=== PATIENT | female | born 1960 | race Caucasian/White ===

== ENCOUNTER → 2016-12-23 | Outpatient (CLI) | payer BC ==
--- NOTE | 2016-12-23 16:45 | MAMMOGRAPHY REPORT ---
BILATERAL DIGITAL SCREENING MAMMOGRAM TOMOSYNTHESIS WITH CAD: 12/23/2016 CLINICAL HISTORY: Routine screening. Patient has no complaints. TECHNIQUE: Breast tomosynthesis in addition to standard 2D mammography was performed. Current study was also evaluated with a Computer Aided Detection (CAD) system. COMPARISON: Comparison is made to exams dated: 12/22/2014 mammogram, 12/26/2013 mammogram, 12/26/2013 ultrasound, 12/21/2013 mammogram, 12/20/2012 mammogram, and 12/17/2011 mammogram - [facility]. BREAST COMPOSITION: The tissue of both breasts is heterogeneously dense, which may obscure small ma sses. FINDINGS: There is a 12 mm asymmetry seen within the right medial posterior breast on the cc tomosy nthesis images, which may represent normal overlapping fibroglandular tissue although spot compressi on tomosynthesis views and possible breast ultrasound are recommended to exclude the possibility of a mass. The remainder of both breasts are stable compared to prior exams, without suspicious masses, calcifi cations, or areas of architectural distortion noted. Asymmetry in the left lateral breast on the cc view is stable compared to prior exams including the 2010 exam. IMPRESSION: ACR BI-RADS CATEGORY 0: INCOMPLETE EVALUATION: NEED ADDITIONAL IMAGING EVALUATION Right medial breast asymmetry, for which additional imaging evaluation is recommended. The patient will be called to schedule an appointment. Approximately 10% of breast cancers are not detected with mammography. A negative mammographic repor t should not delay biopsy if a clinically suggestive mass is present. Sun Rubio M.D. /:12/23/2016 15:11:23 Evaluation Analyst: Esha Resendez, [facility] letter sent: Addl Imaging 0 BI-RADS Code: ACR BI-RADS Category 0: Incomplete Evaluation: Need Additional Imaging Evaluation
== END | disposition home or self-care (01) ==
LOC: C.MAMM 09:10
PROVIDERS: ATTEND Family Medicine
DX: Z12.31 Encounter for screening mammogram for malignant neoplasm of breast (principal); R92.8 Other abnormal and inconclusive findings on diagnostic imaging of breast

== ENCOUNTER → 2017-01-07 | Outpatient (CLI) | payer BC ==
--- NOTE | 2017-01-07 12:34 | MAMMOGRAPHY REPORT ---
UNILATERAL RIGHT DIGITAL DIAGNOSTIC MAMMOGRAM TOMOSYNTHESIS AND TARGETED RIGHT ULTRASOUND: 01/07/2017 CLINICAL HISTORY: Callback from screening mammogram for possible right breast mass. TECHNIQUE: Breast tomosynthesis in addition to standard 2D mammography was performed. Spot dana taqueria right CC 2-D and tomosynthesis images were obtained. COMPARISON: Comparison is made to exams dated: 12/23/2016 mammogram, 12/22/2014 mammogram, 12/26/2013 mammogram, 12/21/2013 mammogram, 12/20/2012 mammogram, and 12/17/2011 mammogram - [facility]. BREAST COMPOSITION: The tissue of the right breast is heterogeneously dense, which may obscure smal l masses. FINDINGS: The previously described 12 mm asymmetry seen within the right medial breast on the cc vie w only effaces on the additional spot compression views. The tissue in this region has the appearan ce of normal fibroglandular tissue on the tomosynthesis images, without a discrete mass or ux information architect ural distortion seen. Targeted ultrasound was performed of the right medial breast in the region of the mammographic asymm etry. Sonographically normal tissue is seen in this region, without evidence of a mass or other pham picious sonographic abnormality. IMPRESSION: ACR BI-RADS CATEGORY 2: BENIGN, TARGETED ULTRASOUND ACR BI-RADS CATEGORY 2: BENIGN The right medial breast asymmetry effaces on the additional views, without corresponding sonographic abnormality evident. The asymmetry is benign and compatible with normal fibroglandular tissue. Th ere is no mammographic or targeted sonographic evidence of malignancy. A 1 year screening mammogram is recommended. The patient has been verbally notified of the results. Approximately 10% of breast cancers are not detected with mammography. A negative mammographic repor t should not delay biopsy if a clinically suggestive mass is present. Sun Rubio M.D. ah/:01/07/2017 10:29:50 Parts Sales Representative: Luz DUMONT)(M), [facility] letter sent: Normal 1/2 BI-RADS Code: ACR BI-RADS Category 2: Benign Ultrasound BI-RADS: ACR BI-RADS Category 2: Benign
== END | disposition home or self-care (01) ==
LOC: C.MAMM 09:30
PROVIDERS: ATTEND Family Medicine
DX: N64.9 Disorder of breast, unspecified (principal)

== ENCOUNTER → 2017-12-24 | Outpatient (CLI) | payer OTHER ==
--- NOTE | 2017-12-24 15:08 | MAMMOGRAPHY REPORT ---
BILATERAL DIGITAL SCREENING MAMMOGRAM TOMOSYNTHESIS WITH CAD: 12/24/2017 CLINICAL HISTORY: Routine screening. Patient has no complaints. TECHNIQUE: Breast tomosynthesis in addition to standard 2D mammography was performed. Current study was also evaluated with a Computer Aided Detection (CAD) system. COMPARISON: Comparison is made to exams dated: 01/07/2017 ultrasound, 01/07/2017 mammogram, 12/23/2016 ma mmogram, 12/22/2014 mammogram, 12/26/2013 mammogram, and 12/26/2013 ultrasound - [facility]. BREAST COMPOSITION: The tissue of both breasts is heterogeneously dense, which may obscure small mas ses. FINDINGS: No suspicious masses, calcifications, or areas of architectural distortion are noted in ei ther breast. There has been no significant interval change compared to prior exams. IMPRESSION: ACR BI-RADS CATEGORY 1: NEGATIVE There is no mammographic evidence of malignancy. A 1 year screening mammogram is recommended. The pa tient will receive written notification of the results. Approximately 10% of breast cancers are not detected with mammography. A negative mammographic report should not delay biopsy if a clinically suggestive mass is present. Sun Rubio M.D. ah/:12/24/2017 12:10:19 Market Development Trainer: Genoveva BLACK(Hailey)(Anita), [facility] letter sent: Normal 1/2 BI-RADS Code: ACR BI-RADS Category 1: Negative
== END | disposition home or self-care (01) ==
LOC: C.MAMM 09:08
PROVIDERS: ATTEND Family Medicine
DX: Z12.31 Encounter for screening mammogram for malignant neoplasm of breast (principal)

== ENCOUNTER 2024-11-03 08:39 | Observation (INO) ==
--- NOTE | 2024-09-28 11:47 | PAT Medication Instructions ---
Medication Instructions Date of Service September 28, 2024 Home Medications calcium 600 mg (as carbonate)-vitamin D3 5 mcg (200 unit) capsule (Calcium 600 + D(3)) 1 cap PO QPM cetirizine 10 mg tablet (Zyrtec) 10 mg PO QPM PRN allergies magnesium chloride 71.5 mg (magnesium chloride) tablet,delayed release (Slow- Mag) 143 mg PO QPM diclofenac sodium 75 mg tablet,delayed release 75 mg PO BID levothyroxine 75 mcg tablet 75 mcg PO QAM Women's 50 Plus Multivitamin) 1 tab PO QPM ASK your surgeon for instructions diclofenac sodium 75 mg tablet,delayed release 75 mg PO BID Take morning of surgery With a small sip of water, OTHERWISE NOTHING TO EAT OR DRINK AFTER MIDNIGHT: levothyroxine 75 mcg tablet 75 mcg PO QAM Take evening before surgery calcium 600 mg (as carbonate)-vitamin D3 5 mcg (200 unit) capsule (Calcium 600 + D(3)) 1 cap PO QPM cetirizine 10 mg tablet (Zyrtec) 10 mg PO QPM PRN allergies magnesium chloride 71.5 mg (magnesium chloride) tablet,delayed release (Slow- Mag) 143 mg PO QPM Women's 50 Plus Multivitamin) 1 tab PO QPM Other Notes If you have any questions please call us at [phone] or [phone] or [phone] or [phone]
--- NOTE | 2024-10-04 09:06 | Anesthesiology Consultation ---
Date of Service October 04, 2024 Assessment & Plan (1) Encounter for pre-operative examination: - awaiting surgeon ordered medical clearance, Meredith Linares 10/18/24 and echocardiogram. Patient made aware echocardiogram would be needed given murmur and recommended neuraxial anesthesia. Optimization form to be faxed to PCP with PAT testing. Surgeon's office made aware. Chart Review Chart Review: Pending: Refer to Additional Notes / Consult section and Patient seen in Pre Admission Testing Teaching & Discussion Pre-Anesthesia Teaching/Discussion Notes: Instructed NPO after midnight before surgery, except medications with 15 cc of water. Medication instructions provided according to the PAT guidelines. History Surgery Operation Date: 11/03/24 07:00 Proposed Procedures p Right Total Hip Arthroplasty - Dakotah Sutton MD Height/Weight Height: 5 ft 8.5 in Weight: 73.8 kg Allergies Allergy/AdvReac Type Severity Reaction Status Date / Time Sulfa (Sulfonamide Allergy Mild Rash Verified 09/27/24 13:31 Antibiotics) Medications Home Medications Medication Instructions Recorded Confirmed Last Taken calcium 600 mg (as 1 cap PO QPM 02/25/20 09/27/24 Unknown carbonate)-vitamin D3 5 mcg (200 unit) capsule (Calcium 600 + D(3)) cetirizine 10 mg tablet (Zyrtec) 10 mg PO QPM PRN allergies 02/25/20 09/27/24 Unknown magnesium chloride 71.5 mg 143 mg PO QPM 02/25/20 09/27/24 Unknown (magnesium chloride) tablet,delayed release (Slow-Mag) diclofenac sodium 75 mg 75 mg PO BID 09/27/24 09/27/24 Unknown tablet,delayed release levothyroxine 75 mcg tablet 75 mcg PO QAM 09/27/24 09/27/24 Unknown dicbtfal-irz-qfigf ac 400 1 tab PO QPM 09/27/24 09/27/24 Unknown mcg-calcium carb 500 mg-vit K1 20 mcg tablet (Women's 50 Plus Multivitamin) Past Medical History Medical History (Updated 10/04/24 @ 09:22 by Beth Bryant PA-C) Cardiac murmur when younger, states was last detected in 40s Hx of colonic polyps Hx: UTI (urinary tract infection) previously had frequent UTI's - ~ 15 years ago Hypothyroidism Osteoarthritis Seasonal allergies Patient denies h/o stroke, seizures, heart attack, heart failure, DM, HTN, blood clots/DVTs or blood transfusions. Exercise / Class Metabolic Activity II 4-5 Yardwork/Stairs/Walk up hill (denies chest discomfort or shortness of breath with one flight of stairs) Past Surgical History Surgical History (Updated 10/04/24 @ 09:05 by Beth Bryant PA-C) Hx of colonoscopy with polypectomy Past Anesthesia History No Hx of Anesthesia Complications and No Family Hx of Anesthesia Complications History of PONV No Hx of PONV and No Hx of Motion Sickness Social History Smoking Status: Never smoker Do You Dip or Chew Tobacco: No Hx Alcohol Use: Yes alcohol intake frequency: a few times a week Hx Substance Use: No substance use type: does not use Review of Systems Patient denies chest pain, shortness of breath, dyspnea on exertion, snoring, witnessed apneas, reflux, fever, chills, cough, wheezing, or palpitations. Physical Exam Vital Signs Vitals BP 133/85 P 73 TEMP 98.0 SP02 97% on RA RESP 18 Physical Patient resting comfortably in chair in no acute distress, alert and oriented, responding appropriately throughout visit Full cervical extension range of motion without pain TMD 3.5 finger breadths Mallampati Score 2 Dentition: one chipped tooth; denies teeth, caps/crowns, implants or bridges Lungs: normal respiratory effort. Good air movement, clear throughout to auscultation, no adventitious breath sounds Cardiac: regular rate and rhythm, 2/6 systolic murmur, no gallops or rubs Carotid arteries: negative bruit bilat Lab Results Anesthesia Preop Results Results Anesthesia Widget: WBC 5.51 K/ul (4.8-10.8) 10/04/24 Hgb 13.1 g/dl (12.0-16.0) 10/04/24 Hct 39.4 % (37.0-47.0) 10/04/24 Plt 309 K/uL (130-400) 10/04/24 PT 10.3 Seconds (9.0-12.0) 10/04/24 PTT 26 Seconds (21-31) 10/04/24 INR 0.9 (0.9-1.1) 10/04/24 Urine Color Yellow 10/04/24 Urine Appearance Clear (Clear) 10/04/24 Urine pH 8.0 (4.5-7.5) H 10/04/24 Urine Specific Jonancy 1.008 (1.000-1.030) 10/04/24 Urine Protein Negative (Negative) 10/04/24 Urine Glucose (UA) Negative (Negative) 10/04/24 Urine Ketones Negative (Negative) 10/04/24 Urine Blood Negative (Negative) 10/04/24 Urine Nitrite Negative (Negative) 10/04/24 Urine Bilirubin Negative (Negative) 10/04/24 Urine Urobilinogen Negative (Negative) 10/04/24 Urine Leukocyte Esterase Trace (Negative) H 10/04/24 Urine WBC (Auto) 0-5 /hpf (0-5) 10/04/24 Urine RBC (Auto) 6-10 /hpf (0-2) H 10/04/24 Urine Hyaline Casts (Auto) 0-2 /lpf (0-2) 10/04/24 Urine Epithelial Cells (Auto) 0-2 /hpf (0-2) 10/04/24 Urine Bacteria (Auto) None Seen (None Seen) 10/04/24 Blood Type O Positive 10/04/24 Antibody Screen NEGATIVE 10/04/24 Testing Laboratory Results 09/29/24 SODIUM: 139 POTASSIUM: 4.4 CHLORIDE: 104 CO2: 28 BUN: 18 CREATININE: 0.6 GLUCOSE: 97 AST: 39 ALT: 43 Alk phos: 83 TSH: 2.3 free T4: 1.4 Electrocardiogram Date: 10/04/24 NSR, rate 65 bpm
--- NOTE | 2024-10-12 15:14 | History & Physical Report ---
Date of Service October 12, 2024 Assessment & Plan (1) Osteoarthritis of right hip: Plan: PRE-OP Diagnosis: Right hip osteoarthritis Planned Procedure: Right total hip arthroplasty Plan: Patient is scheduled to undergo this procedure at the [facility] with Dr. Sutton on October. Risks and complications of the procedure such as: Infection, bleeding, pain, scarring, nerve blood vessel damage, weakness, wound problems, stiffness, incomplete relief of symptoms, hardware failure, hardware loosening, wear, fracture, tendon or ligament injury, dislocation, leg length inequality, blood clots, Embolism, heart attack, stroke and were explained to the patient at her visit today. Informed consent to perform the procedure was obtained. Patient met with anesthesia on October 04 and while there she obtained a CBC with differential, complete metabolic panel, PT/INR, blood type and screen, urinalysis, urine culture and sensitivity, EKG, and a nasal culture for MRSA. Patient will also need preoperative medical clearance from their primary care provider. That appointment is scheduled for October 18 at 2:10 PM. Patient states that she plans on doing in-home physical therapy for the first 1 to 2 weeks postoperat ively with [facility]. Patient states that she will most likely elect to do outpatient physical therapy at our PT clinic. Patient will need a walker, raised toilet seat, shower chair and a hip kit. During today's visit we reviewed the total hip packet as well as precautions. We discussed discharge planning from the hospital. I provided paperwork to obtain a handicap placard for their vehicle. We discussed lectures offered by [facility] in regards to joint replacement surgery via Zoom. I advised the patient that upon discharge from hospital we will prescribe a narcotic pain medication and anti-inflammatory. Patient will also be on an 81 mg aspirin twice daily for blood clot prevention. Patient will be scheduled for 2-week postoperative follow-up visit with myself on November 15, 2024. This chart was completed utilizing [employer] voice recognition software. Grammatical errors, random word insertions, pronoun errors, and in complete sentences are an occasional consequence of the system. Any questions or concerns about the content, text, or information contained within the body of this dictation should be addressed directly to the physician for clarification. History of Present Illness Chief Complaint: Chief Complaint: Right hip pain Primary Care Provider: Iveth Nixon MD History of Present Illness (including history relevant to procedure): 2 weeks this 63-year-old female presents the clinic today for her preoperative history and physical. Patient complains of 2-year history of significant right hip pain that seems to be worse when she is not moving. She states that she has used nonsteroidal agents with some mild relief of her pain. She states his starting to affect the mobility of her hip joint. Patient is electing to proceed with surgical invention Review Of Systems: A 12 point review of systems is performed and is unremarkable except for those things stated in the HPI and past medical history. Past Medical History: Problems: Arthritis of right hip Subclinical hypothyroidism IT band syndrome Seborrheic keratoses Allergic rhinitis Procedure History Procedure Procedure Date Comments Diagnostic mammogram 07/09/2022 - No evidence of architectural distortion within the right lateral breast on the additional mammogrpahic images. Findings are benign and consistent with normal fibrogladular tissue. No mammographic evidence of malignancy in the right breast. Mammogram 06/27/2022 - Possible right breast architectural distortion, for which additional imaging evaluation is recommended. The patient will be called to schedule an appointment. Mammogram 06/26/2021 - No mammographic evidence of malignancy. 1 year screening is recommended. Mammogram 06/25/2020 - No mammographic evidence of malignancy. 1 year screening is recommended. Mammogram 02/15/2019 - No mammographic evidence of malignancy. 1 year screening is recommended. Colonoscopy 02/09/2018 - next scope in 10 yrs - The entire examined colon is normal.No specimens collected. Mammogram 12/24/2017 - There is no mammographic evidence of malignancy. 1 year screening is recommended. Mammogram 01/07/2017 - The right medial breast asymmetry effaces on the additional views, without corresponding soogrpahic abnormality evident. The asymmetry is benign and compatible wit normal fibroglandular tissue. there is no mammographic evidence of malignancy. 1 year screening mamogram is recommended. [facility] C[facility] 0: INCOMPLETE EVALUATION: NEED ADDITIONAL IMAGING EVALUATION1. Right medial breast asymmetry, for which additional imaging evaluation is recommended Date of last PAP test 12/10/2016 - Negative for intraepithelial lesion or malignancy. Mammogram 12/22/2014 - No evidence of malignancy.A one year mammogram is recommended. DEXA - Dual energy X-ray photon absorptiometry 12/17/2011 - T SCORESLIGHTLY HIGH, ANSELMOD REPEAT 2-14 Colonoscopy 2009 - polyp removed, but lost, so told another one in 5 yrs. PAP test date 1960 Allergies and Sensitivities: sulfa drugs Current Home Meds: (Last Updated 10/12 11:05) calcium-vitamin D (Citracal + D) PO Daily cetirizine (ZyrTEC 10 mg oral tablet) 10 mg PO Daily PRN: as needed for allergy symptoms diclofenac (diclofenac sodium 75 mg oral delayed release tablet) 75 mg PO bid PRN: as needed for pain levothyroxine (levothyroxine 75 mcg (0.075 mg) oral tablet) 1 tab PO Daily magnesium chloride multivitamin (One-A-Day 50+) 1 tab PO Daily Initial Wt: 10/12 73.7 kg 162 lb Allergies Allergy/AdvReac Type Severity Reaction Status Date / Time Sulfa (Sulfonamide Allergy Mild Rash Verified 09/27/24 13:31 Antibiotics) Home Medications Medication Instructions Recorded Confirmed Type calcium 600 mg (as 1 cap PO QPM 02/25/20 09/27/24 History carbonate)-vitamin D3 5 mcg (200 unit) capsule (Calcium 600 + D(3)) cetirizine 10 mg tablet (Zyrtec) 10 mg PO QPM PRN allergies 02/25/20 09/27/24 History magnesium chloride 71.5 mg 143 mg PO QPM 02/25/20 09/27/24 History (magnesium chloride) tablet,delayed release (Slow-Mag) diclofenac sodium 75 mg 75 mg PO BID 09/27/24 09/27/24 History tablet,delayed release levothyroxine 75 mcg tablet 75 mcg PO QAM 09/27/24 09/27/24 History xrkziuzc-tnl-agaff ac 400 1 tab PO QPM 09/27/24 09/27/24 History mcg-calcium carb 500 mg-vit K1 20 mcg tablet (Women's 50 Plus Multivitamin) Past Med/Surg History Problem List (Updated 10/12/24 @ 15:13 by Trell Knight PA-C) Osteoarthritis of right hip Encounter for pre-operative examination Medical History (Updated 10/12/24 @ 15:13 by Trell Knight PA-C) Osteoarthritis Hx: UTI (urinary tract infection) previously had frequent UTI's - ~ 15 years ago Cardiac murmur when younger, states was last detected in 40s Seasonal allergies Hx of colonic polyps Hypothyroidism Surgical History (Updated 10/04/24 @ 09:05 by Beth Bryant PA-C) Hx of colonoscopy with polypectomy Social History Smoking Status: Never smoker Second Hand Exposure: No; Do You Dip or Chew Tobacco: No; Hx Alcohol Use: Yes Hx Substance Use: No Preferred Language: Icelandic Communication Ability: Effective Revenue Tax Specialist Required: No Beliefs That Will Affect Care: None Current Living Situation: Alone Feels Safe at Home: Yes Assistive Devices: Glasses and Other Physical Exam Physical Exam: Physical Exam: (relevant to the procedure, including heart and lung evaluation) General: Alert and oriented x 3 with proper grooming and hygiene Eyes: Pupils are equal and reactive to light with accommodation. Extraocular movements are intact Throat: Posterior oropharynx clear with absence of edema, erythema or exudate. Dentition is appropriate Cardiac: Regular rate and rhythm with grade 2/6 systolic murmur heard best over the right upper sternal border. No gallops appreciated Lungs: Clear to auscultation throughout with no wheezing, rales or rhonchi Abdomen: Nonobese, nondistended, nontender with NABS Extremities: Right hip: Flexion is limited to 90 degrees, internal rotation to 5 degrees and external rotation to 40 degrees. Stinchfield logroll test were both positive. Impingement test was positive. Patient experienced tenderness to palpation in her groin area. She was neurovascularly intact. Neuro: Cranial nerves II through XII are intact no motor or sensory deficit Skin: Normal in appearance with no open skin areas or discharge Results & Data Diagnostic Findings Studies of Lab Results (relevant to the procedure): AP Pelvis,AP andfrog-leg lateralviews of theright [id number] [facility] show central pattern osteoarthritis. Large peripheral osteophytes
[~2024-11-03 08:39] MED LIST: BUPIVACAINE 0.5 % 5 MG/1 ML PF 10ML VIAL ONE
[2024-11-03] MEDS: Scopolamine 1 MG TDSY TD SCH (09:43)
[2024-11-03] MEDS: LR 500ML BOLUS, THEN 15ML/HR IV SCH (10:20)
[2024-11-03] MEDS: LR 60ML/HR IV SCH (10:20)
[2024-11-03] MEDS: traMADol HCL 50 MG TABLET PO SCH (10:21)
[2024-11-03] MEDS: ACETAMINOPHEN 500 MG TAB PO SCH ×2 (10:21→18:15)
[2024-11-03] MEDS: dexAMETHasone**PF** 10 MG/ML VIAL IV SCH (10:21)
[2024-11-03] MEDS ORDERED: fentaNYL citrate PF 100 MCG/2 ML VIAL ONE (10:22)
[2024-11-03] MEDS: FAMOTIDINE 20 MG TAB PO SCH (10:22)
[2024-11-03] MEDS ORDERED: MIDAZOLAM HCL 1 MG/ML 2ML VIAL ONE (10:22)
--- NOTE | 2024-11-03 10:38 | History & Physical Bridge Note ---
Date of Service November 03, 2024 History & Physical Bridge Note I have examined the patient, reviewed the History & Physical and in the interval since the performance of the History & Physical I have noted the following changes of clinical significance: no changes noted
[2024-11-03] MEDS ORDERED: HYDROmorphone INJ 2 MG/ML SYR/VIAL IV PRN (10:45)
[2024-11-03] MEDS ORDERED: ONDANSETRON INJ 2 MG/ML 2 ML VIAL IV PRN ×2 (10:45→12:58)
[2024-11-03] MEDS ORDERED: fentaNYL citrate PF 100 MCG/2 ML VIAL IV PRN (10:45)
[2024-11-03] MEDS ORDERED: ePHEDrine sulfate 50 MG/ML AMP IV PRN (10:45)
[2024-11-03] MEDS ORDERED: ATROPINE SULFATE 0.1 MG/ML 10ML SYR IV PRN (10:45)
[2024-11-03] MEDS ORDERED: PROMETHAZINE HCL 6.25 MG in SODIUM CHLORIDE 0.9% 50 ML IV PRN (10:45)
[2024-11-03] MEDS: TRANEXAMIC ACID 1,000 MG **IV Pre-op IV SCH (10:57)
[2024-11-03] MEDS: ceFAZolin 2000MG 2,000 MG/15 ML SYR IV SCH ×2 (11:09→18:35)
[2024-11-03] MEDS ORDERED: PROPOFOL IV EMULSION 10 MG/ML 20 ML VIAL IV ONE (11:39)
[2024-11-03] MEDS ORDERED: ePHEDrine sulfate 50 MG/5 ML SYR ONE ×2 (11:39)
[2024-11-03] MEDS ORDERED: ONDANSETRON INJ 2 MG/ML 2 ML VIAL ONE (11:40)
[2024-11-03] MEDS: ROPIVACAINE 0.5% HCL/PF 246 MG, Ketorolac (*for OR use only*) 30 MG, EPINEPHrine 30MG/3... INFIL SCH (11:48)
[2024-11-03] MEDS: TRANEXAMIC ACID 1,000 MG **IV Intra-op IV SCH (12:15)
[2024-11-03] MEDS: ORTHO JOINT ANESTHETIC ONE (12:19)
--- NOTE | 2024-11-03 12:51 | Operative Report ---
Post Operative Report Pre & Post Diagnosis Operation Date: 11/03/24 10:40 Pre-Op Diagnosis: Right Hip Osteoarthritis Post-Op Diagnosis: Right Hip Osteoarthritis I identified the patient and participated in the time-out.: Yes Procedure Operation Date: 11/03/24 10:40 Actual Procedures p Right Total Hip Arthroplasty, Uncemented(Right) - Dakotah Sutton MD Surgeon Dakotah Sutton MD Morning Nanny TRAVIS Knight PA-C. No resident or fellow was available to assist. Estimated Blood Loss 100 Findings Consistent with Post-Op Diagnosis Specimens Right femoral head Anesthesia Type Spinal MAC Complications none Disposition Disposition: Recovery Room Indications 63-year-old female with right hip arthritis refractory to conservative management. X-rays demonstrate joint space narrowing, subchondral sclerosis, and marginal osteophyte formation. I had a long discussion with her about the risks and benefits of surgery, alternatives to surgery, and expected outcomes. After reviewing all these she elected to proceed with surgery. All questions were answered. Informed consent was signed. Description of Procedure Patient was identified in the preoperative holding area where the surgical site, right hip, was marked. A spinal anesthetic was placed, then the patient was brought back to the main operating room, placed in the operating table and moved into the lateral decubitus position. Axillary roll was placed. All bony prominences were padded. Perioperative antibiotics and tranexamic acid 1 gram IV were administered. The operative extremity was prepped and draped in the nor mal sterile fashion. Prior to incision a multidisciplinary timeout was called. All in the room were in agreement. We began by making an incision for a posterior approach to the hip. We dissected down through subcutaneous tissues to the level of the fascia. The fascia was incised in line with the incision. Charnley bow was placed. Fatty tissue was reflected posteriorly off the back of the greater trochanter to expose the piriformis and short external rotators of the hip. Quadratus femoris was taken off the femur subperiosteally. The piriformis and short external rotators were dissected off the posterior aspect of the hip. A box cut was made in the capsule. Inferior hip capsule was released off the femur. The femoral head was dislocated. The femoral neck cut was made at our preoperative template. The acetabulum was then exposed. The labrum was sharply excised. Contents of the cotyloid fossa were removed with electrocautery. We then began reaming at a size 8 mm less than our preoperative template. We reamed up by 1 [address] the way up to a size 54 mm cup. This gave us good bleeding cancellus bone circumferentially. The acetabulum was then irrigated out and dried. The real Bois D Arc Gription cup was then impacted down into position with 45 degrees of lateral opening and 25 degrees of anteversion. Two cancellous bone screws were placed up into the tony um. Excellent fixation was obtained. A trial liner for a 36 mm femoral head was then placed. Next we turned our attention to the femur. The lateral neck was removed with a box osteotome. Intramedullary guide was used to establish the intramedullary canal. We then broached all the way up to a size 2. We began trialing with a Standard offset neck and a +5 head. Hip was reduced. Leg lengths were symmetric. The hip was stable in extension and external rotation, and stable in the sleeper position. At 90 degrees of hip flexion the hip could be internally rotated 65 degrees before levering out of the cup. I was very happy with the stability exam. Therefore the hip was dislocated and the femoral trial was removed. The acetabulum was re-exposed, and the trial liner was removed. Clark hole eliminator screw was placed. An Altrx polyethylene liner for a 36 mm femoral head was then impacted into the shell. The locking mechanism was checked to ensure that it had engaged which it had. The femur was re-exposed. The femoral canal was irrigated and dried. The real Actis femoral stem was opened up. This was impacted down into position. The femoral head was opened up and gently impacted down onto the trunnion. The hip was atraumatically reduced. Another 1 gram of IV tranexamic acid was started prior to closure. The wound was irrigated out with sterile Betadine solution. The periarticular injection cocktail was then placed. The short external rotators, piriformis, and posterior capsule were repaired through drill holes in the greater trochanter using #2 Vicryl. The fascia was run with a looped #1 PDS. The subcutaneous layer was closed with #1 PDS. The dermal layer was closed with 2-0 Vicryl. Zip line was used for the skin followed by a Silverlon dressing. A compressive dressing was then placed. The patient was then rolled supine. Leg lengths were rechecked and were symmetric. An abduction pillow was placed. Sedation was lifted and the patient was transferred to the recovery room in stable condition. Summary of implants: Depuy Bois D Arc Gription Acetabular Shell Sector Cup, 54 mm outer diameter Bois D Arc Cancellous bone screw, 6.5 x 40 mm Clark hole eliminator Bois D Arc Altrx Polyethylene Acetabular Liner, Neutral, with a 36 mm inner diameter DePuy Actis collared cementless Femoral stem, 12/14 taper, size 2 Standard offset 36 mm ceramic femoral head with +5 offset Postoperative course: Patient will be admitted overnight from the recovery room. Patient will be weightbearing as tolerated with posterior hip precautions. Aspirin for DVT prophylaxis I attest to the content of the Intraoperative Record and any orders documented therein. Any exceptions are noted below.
[2024-11-03] MEDS ORDERED: METOCLOPRAMIDE HCL INJ 5 MG/ML 2 ML VIAL IV PRN (12:58)
[2024-11-03] MEDS ORDERED: NALOXONE HCL 0.4 MG/1 ML VIAL/CARP IV PRN (12:58)
[2024-11-03] MEDS ORDERED: diphenhydrAMINE 50 MG/ML VIAL IV PRN (12:58)
[2024-11-03] MEDS ORDERED: bisacodyL 10 MG SUPP PR PRN (12:58)
[2024-11-03] MEDS ORDERED: MAGNESIUM HYDROXIDE SUSP 30 ML UDC PO PRN (12:58)
[2024-11-03] MEDS ORDERED: ALUMINUM/MAGNESIUM SUSP 30 ML UDC PO PRN (12:58)
[2024-11-03] MEDS ORDERED: oxyCODONE HCL IR 5 MG TAB (IMMEDIATE RELEASE) PO PRN (12:58)
--- NOTE | 2024-11-03 12:58 | Operative Report ---
Post Operative Report Pre & Post Diagnosis Operation Date: 11/03/24 10:40 Pre-Op Diagnosis: Right Hip Osteoarthritis Post-Op Diagnosis: Right Hip Osteoarthritis I identified the patient and participated in the time-out.: Yes Procedure Operation Date: 11/03/24 10:40 Actual Procedures p Right Total Hip Arthroplasty, Uncemented(Right) - Dakotah Sutton MD Surgeon Dakotah Sutton MD Hand Touch Up Painter TRAVIS Knight PA-C. No resident or fellow was available to assist. Estimated Blood Loss 100 Findings Consistent with Post-Op Diagnosis Specimens femoral head Description of Procedure I was present during the entire case assisting with positioning, prepping, draping, wound retraction, wound closure and dressing application. No fellow present. Please see Dr. Sutton procedure note for specifics of the case. I attest to the content of the Intraoperative Record and any orders documented therein. Any exceptions are noted below.
[2024-11-03] MEDS ORDERED: CETIRIZINE HCL 10 MG TABLET PO PRN (13:01)
--- NOTE | 2024-11-03 13:48 | XRay Report ---
XR pelvis 1-2V routine HISTORY: 63 years-old Female In PACU - Post Surgical right hip arthroplasty COMPARISON: Pelvis radiograph 10/12/2024 TECHNIQUE: AP view the pelvis FINDINGS: Satisfactory alignment of the right hip arthroplasty. Expected postoperative soft tissue swelling wit h deep tissue air. Mild to moderate left hip osteoarthritis. IMPRESSION: Satisfactory alignment of the right hip arthroplasty. ACT 112: Negative or not required by law. The above report was generated using voice recognition software. It may contain grammatical, syntax o r spelling errors. Electronically signed by: Yazan Ayoub M.D. 11/03/2024 1:47 PM
--- NOTE | 2024-11-03 15:15 | Anesthesiology Progress Note ---
Date of Service November 03, 2024 Anesthesia Post Procedure Vital Signs Vital Signs: Temp Pulse Resp BP BP Pulse Ox O2 Del Method 11/03/24 15:10 67 15 107/61 951 H Room Air 11/03/24 14:55 64 19 103/57 L 96 Room Air 11/03/24 14:40 62 17 104/59 L 96 Room Air 11/03/24 14:25 66 19 104/61 98 Room Air 11/03/24 14:10 64 15 105/62 97 Room Air 11/03/24 14:00 36.3 C L 71 23 103/62 100 Room Air 11/03/24 13:50 69 26 H 100/58 L 99 Room Air 11/03/24 13:40 70 20 105/62 96 Room Air 11/03/24 13:30 64 15 104/61 98 Room Air 11/03/24 13:20 70 17 93/73 L 98 Room Air 11/03/24 13:10 76 26 H 86/58 L 98 Room Air 11/03/24 13:00 73 12 101/56 L 99 Room Air 11/03/24 12:54 36.2 C L 79 21 108/63 98 Room Air 11/03/24 10:25 57 L 116/81 99 Room Air 11/03/24 09:18 36.8 C 66 18 167/92 H 100 Room Air Transfer of Care Handoff Completed per policy Notes Mental Status: alert / awake / arousable and participated in evaluation Nausea / Vomiting: adequately controlled Pain: adequately controlled Airway Patency, RR, SpO2: stable & adequate BP & HR: stable & adequate Hydration State: stable & adequate Neuraxial Anesthesia: was administered and sensory block is resolving Anesthetic Complications: no major complications apparent and Pt Satisfied with anesthetic care
[2024-11-03] MEDS: KETOROLAC TROMETHAMINE 15 MG/ML VIAL IV SCH (18:09)
[2024-11-03] MEDS: Scopolamine CHECK PATCH PLACEMENT SCH (18:15)
[2024-11-03] MEDS ORDERED: Nursing to Pharmacy Communication SCH (18:45)
--- NOTE | 2024-11-03 19:48 | Hospitalist Consultation ---
Date of Consultation November 03, 2024 Assessment & Plan (1) Osteoarthritis of right hip: (2) Hypothyroidism: (3) Cardiac murmur: Plan S/P Right Total Hip Arthroplasty -Underwent surgery earlier today (11/03) -Management per orthopedic surgery -Encouraged patient to continue bowel regimen with pain medication to prevent constipation Hypotension -BP slightly soft with systolic BP ranging from 80s-90s -Patient asymptomatic at present, had vasovagal episode reportedly while obtaining IV access earlier -EBL documented at 100cc -Encouraged adequate PO intake. Will order 1 bag of IVF as BP has not improved significantly overnight -CBC, BMP ordered for a.m. Hypothyroidism -Continue levothyroxine History of Heart Murmur -Underwent echo (10/05/2024) that showed a sclerotic tricuspid aortic valve, but no aortic stenosis or valvular disease -LVEF was estimated at 65% History of Present Illness Attending Physician: Dakotah Sutton MD History of Present Illness Henrietta Weir is a 63 year-old female with medical history significant for arthritis, hypothyroidism. Patient is s/p right total hip arthroplasty, was completed earlier today (11/03/24). Orthopedic surgery consulted hospitalist service for medical management. Patient states she is feeling well at present. Reports that there was some difficulty when nursing needed to place IV access which caused her to vasovagal- states that when the IV antibiotic was run through the IV if felt "weird" and she again felt flushed and sweaty. Reports prior episodes similar to this earlier in her life with blood draws, but states in the years since then she has tolerated blood draws without issue. Endorses some discomfort with the location of her IV (at right antecubital) but otherwise is asymptomatic. Denies dizziness/lightheadedness/chest pain/shortness of breath. Allergies Allergy/AdvReac Type Severity Reaction Status Date / Time Sulfa (Sulfonamide Allergy Mild Rash Verified 11/03/24 09:17 Antibiotics) Home Medications Medication Instructions Recorded Confirmed Type calcium 600 mg (as 1 cap PO QPM 02/25/20 11/03/24 History carbonate)-vitamin D3 5 mcg (200 unit) capsule (Calcium 600 + D(3)) cetirizine 10 mg tablet (Zyrtec) 10 mg PO QPM PRN allergies 02/25/20 11/03/24 History magnesium chloride 71.5 mg 143 mg PO QPM 02/25/20 11/03/24 History (magnesium chloride) tablet,delayed release (Slow-Mag) diclofenac sodium 75 mg 75 mg PO BID 09/27/24 11/03/24 History tablet,delayed release levothyroxine 75 mcg tablet 75 mcg PO QAM 09/27/24 11/03/24 History lvqskbml-sjs-qrdup ac 400 1 tab PO QPM 09/27/24 11/03/24 History mcg-calcium carb 500 mg-vit K1 20 mcg tablet (Women's 50 Plus Multivitamin) Patient History Medical History Osteoarthritis Hx: UTI (urinary tract infection) previously had frequent UTI's - ~ 15 years ago Cardiac murmur when younger, states was last detected in 40s Seasonal allergies Hx of colonic polyps Hypothyroidism Surgical History Hx of colonoscopy with polypectomy Social History Smoking Status: Never smoker Second Hand Exposure: No; Do You Dip or Chew Tobacco: No; Tobacco Cessation Education Requested by Patient: No Hx Alcohol Use: Yes Hx Substance Use: No Preferred Language: [place]i Communication Ability: Effective Fish Roe Processor Required: No Beliefs That Will Affect Care: None Current Living Situation: Alone Other Information That Helps Us Care for You: No Feels Safe at Home: Yes Safety Concerns: Feels Safe At This Time Assistive Devices: Glasses and Other Assistive Devices Comment: trays over teeth to sleep with for straightening Review of Systems Review of Systems: As per above Physical Exam Constitutional: WD/WN, vitals as above Eyes: + anicteric sclerae; no conjunctival abn ormality ENMT: Ears: no external ear abnormality Nose: no external nose abnormality Moist mucous membranes Respiratory: normal respiratory effort, lungs clear to auscultation Cardiovascular: Rate/Rhythm: regular rate and regular rhythm Extremities: no edema Gastrointestinal (Abdomen): Inspection/Auscultation: abdomen normal to inspection; abdomen not distended Percussion/Palpation: abdomen soft; abdomen nontender Musculoskeletal: Right hip bandaged Skin: no rashes, warm and dry Psychiatric: A+Ox3, euthymic affect Results & Data Results & Data Vital Signs (Past 12 Hours) Vital Signs Temp Pulse Pulse Resp BP BP Pulse Ox 11/03/24 19:19 67 18 95/60 L 11/03/24 18:53 61 16 88/52 L 92 11/03/24 18:52 83/47 L 11/03/24 18:46 54 L 17 80/40 L 95 11/03/24 18:18 36.5 C 75 16 99/60 L 94 11/03/24 17:22 36.5 C 79 16 99/61 L 95 11/03/24 16:59 36.3 C L 79 16 109/68 95 11/03/24 16:16 36.8 C 74 18 105/64 95 11/03/24 15:55 75 15 99/65 L 94 11/03/24 15:40 68 13 99/61 L 93 11/03/24 15:25 69 20 104/61 94 11/03/24 15:10 67 15 107/61 95 11/03/24 14:55 64 19 103/57 L 96 11/03/24 14:40 62 17 104/59 L 96 11/03/24 14:25 66 19 104/61 98 11/03/24 14:10 64 15 105/62 97 11/03/24 14:00 36.3 C L 71 23 103/62 100 11/03/24 13:50 69 26 H 100/58 L 99 11/03/24 13:40 70 20 105/62 96 11/03/24 13:30 64 15 104/61 98 11/03/24 13:20 70 17 93/73 L 98 11/03/24 13:10 76 26 H 86/58 L 98 11/03/24 13:00 73 12 101/56 L 99 11/03/24 12:54 36.2 C L 79 21 108/63 98 11/03/24 10:25 57 L 116/81 99 11/03/24 09:18 36.8 C 66 18 167/92 H 100 O2 Del Method 11/03/24 19:19 11/03/24 18:53 Room Air 11/03/24 18:52 11/03/24 18:46 Room Air 11/03/24 18:18 Room Air 11/03/24 17:22 Room Air 11/03/24 16:59 Room Air 11/03/24 16:16 Room Air 11/03/24 15:55 Room Air 11/03/24 15:40 Room Air 11/03/24 15:25 Room Air 11/03/24 15:10 Room Air 11/03/24 14:55 Room Air 11/03/24 14:40 Room Air 11/03/24 14:25 Room Air 11/03/24 14:10 Room Air 11/03/24 14:00 Room Air 11/03/24 13:50 Room Air 11/03/24 13:40 Room Air 11/03/24 13:30 Room Air 11/03/24 13:20 Room Air 11/03/24 13:10 Room Air 11/03/24 13:00 Room Air 11/03/24 12:54 Room Air 11/03/24 10:25 Room Air 11/03/24 09:18 Room Air Resident Activity Tracking Resident Involvement: Resident Care Provided Care Provided: Adult Hospital Medicine
[2024-11-03] MEDS: DOCUSATE SODIUM 100 MG CAP PO SCH (21:32)
[2024-11-03] MEDS: CALCIUM 600MG + VIT D 400 IU TAB PO SCH (21:32)
[2024-11-03] MEDS: SENNA 8.6 MG TAB PO SCH (21:32)
[2024-11-03] MEDS: DICLOFENAC SODIUM 75 MG TABCR PO SCH (21:33)
[2024-11-03] MEDS: MAGNESIUM CHLORIDE W/CALCIUM 64MG DELAYED REL TAB PO SCH (21:33)
[2024-11-03 23:56] VITALS: RESP 16
[2024-11-04] MEDS: KETOROLAC TROMETHAMINE 15 MG/ML VIAL IV SCH (00:56)
[2024-11-04 04:34] VITALS: TEMP 97.9
[2024-11-04] MEDS: ACETAMINOPHEN 500 MG TAB PO SCH (06:10)
[2024-11-04] MEDS: SODIUM CHLORIDE 0.9% 1,000 ML IV SCH (06:10)
[2024-11-04] MEDS: LEVOTHYROXINE SODIUM 75 MCG TABLET PO SCH (06:10)
[2024-11-04 07:19] LABS: Basophils # (auto) 0.02 K/uL (0.00-0.20); Basophils % (auto) 0.2 %; Eosinophils # (auto) 0.01 K/uL (0.00-0.50); Eosinophils % (auto) 0.1 %; Hematocrit (blood only) 31.6 % (37.0-47.0); Hemoglobin 10.6 g/dl (12.0-16.0); Immature Granulocytes # (auto) 0.04 K/uL (0.01-0.20); Immature Granulocytes % (auto) 0.4 %; Lymphocytes # (auto) 1.32 K/uL (1.20-3.40); Lymphocytes % (auto) 12.3 %; Mean Corpuscular Hemoglobin 31.3 pg (25.0-34.0); Mean Corpuscular Hgb Conc 33.5 g/dL (32.0-36.0); Mean Corpuscular Volume 93.2 fL (80.0-100.0); Monocytes % (auto) 11.2 %; Neutrophils # (auto) 8.15 K/uL (1.40-6.50); Neutrophils % (auto) 75.8 %; Platelet Count 250 K/uL (130-400); RDW Coefficient of Variation 12.5 % (11.5-14.5); RDW Standard Deviation 42.8 fL (36.4-46.3); Red Blood Count 3.39 M/uL (4.20-5.40); White Blood Count 10.74 K/ul (4.8-10.8)
[2024-11-04 07:39] LABS: BUN Creatinine Ratio 20.9 (10-20); Calcium 9.5 mg/dl (8.6-10.3); Creatinine Clr Calc Pharmacy 86.7 ml/min; Potassium 4.4 mmol/L (3.5-5.1)
[2024-11-04] MEDS: ASPIRIN 81 MG ECTAB PO SCH (08:51)
[2024-11-04] MEDS: dexAMETHasone 4 MG TAB PO SCH (08:52)
[2024-11-04] MEDS: MULTIVITAMIN TAB PO SCH (08:52)
--- NOTE | 2024-11-04 09:32 | Orthopedic Progress Note ---
Date of Service November 04, 2024 Assessment & Plan (1) S/P total hip arthroplasty: Plan: Total hip precautions reviewed Weightbearing as tolerated with walker assistance DVT prophylaxis with aspirin and RENITA stockings Pain controlled p.o. medication Abduction pillow use x 6 weeks Ice with easy wrap Keep Silverlon dressing in place Plan is to discharge home today with in-home physical therapy for the first 2 weeks Follow-up with [facility] orthopedics as previously scheduled Contact our clinic with questions at [phone] Admission and Anticipated Discharge Date Admission Date: November 03, 2024 Subjective This 63-year-old female is day 1 status post right total hip arthroplasty. Patient did have an episode of fainting in the preoperative area yesterday and was slightly hypotensive after surgery. She was evaluated by the hospitalist service. Her pressures have since normalized. Patient states her pain is well-controlled with p.o. pain medication. She states she did have some nausea earlier this morning. Currently she denies chest pain, shortness of breath, fever, chills, sweats, vomiting, diarrhea or difficulty voiding. She also denies any numbness or tingling in her right lower extremity. Review of Systems Review of Systems: All systems reviewed & are unremarkable except as noted in Subjective Physical Exam Physical Exam: Right hip: Outer dressing was removed. Silverlon is clean dry and intact left in place. Patient is able to perform an active straight leg raise test and actively dorsi and plantarflex her foot. Her quad strength is 3+ out of 5. She tolerates light passive hip flexion near 80 degrees but does feel some slight tension with light passive internal and external hip rotation. Logroll test causes no pain. Patient is neurovascularly intact right lower extremity. Results & Data Vital Signs (Past 12 Hours) Vital Signs Temp Pulse Resp BP BP Pulse Ox O2 Del Method 11/04/24 08:18 36.6 C 62 16 108/68 95 Room Air 11/04/24 04:31 36.6 C 62 16 99/64 L 95 Room Air 11/03/24 23:54 36.4 C L 62 16 95/60 L 93 Room Air Diagnostic Findings Laboratory Results WBC 10.74 K/ul (4.8-10.8) 11/04/24 06:51 RBC 3.39 M/uL (4.20-5.40) L 11/04/24 06:51 Hgb 10.6 g/dl (12.0-16.0) L 11/04/24 06:51 Hct 31.6 % (37.0-47.0) L 11/04/24 06:51 MCV 93.2 fL (80.0-100.0) 11/04/24 06:51 MCH 31.3 pg (25.0-34.0) 11/04/24 06:51 MCHC 33.5 g/dL (32.0-36.0) 11/04/24 06:51 RDW Std Deviation 42.8 fL (36.4-46.3) 11/04/24 06:51 RDW Coeff of Du 12.5 % (11.5-14.5) 11/04/24 06:51 Plt Count 250 K/uL (130-400) 11/04/24 06:51 MPV 10.0 fL (9.4-12.4) 11/04/24 06:51 Immature Gran % (Auto) 0.4 % 11/04/24 06:51 Neut % (Auto) 75.8 % 11/04/24 06:51 Lymph % (Auto) 12.3 % 11/04/24 06:51 [place] % (Auto) 11.2 % 11/04/24 06:51 Eos % (Auto) 0.1 % 11/04/24 06:51 Baso % (Auto) 0.2 % 11/04/24 06:51 Neut # (Auto) 8.15 K/uL (1.40-6.50) H 11/04/24 06:51 Lymph # (Auto) 1.32 K/uL (1.20-3.40) 11/04/24 06:51 [place] # (Auto) 1.20 K/uL (0.11-0.59) H 11/04/24 06:51 Eos # (Auto) 0.01 K/uL (0.00-0.50) 11/04/24 06:51 Baso # (Auto) 0.02 K/uL (0.00-0.20) 11/04/24 06:51 Immature Gran # (Auto) 0.04 K/uL (0.01-0.20) 11/04/24 06:51 Sodium 139 mmol/L (136-145) 11/04/24 06:51 Potassium 4.4 mmol/L (3.5-5.1) 11/04/24 06:51 Chloride 105 mmol/L (98-107) 11/04/24 06:51 Carbon Dioxide 29 mmol/L (21-32) 11/04/24 06:51 Anion Gap 5 (3-11) 11/04/24 06:51 BUN 14 mg/dl (6-23) 11/04/24 06:51 Creatinine 0.67 mg/dl (0.6-1.2) 11/04/24 06:51 Est Cr Clr Drug Dosing 86.7 ml/min 11/04/24 06:51 eGFR 98.15 11/04/24 06:51 BUN/Creatinine Ratio 20.9 (10-20) H 11/04/24 06:51 Glucose 105 mg/dl (70-99(Fasting)) H 11/04/24 06:51 Calcium 9.5 mg/dl (8.6-10.3) 11/04/24 06:51 Impressions Pelvis X-Ray 11/03/24 12:58 XR pelvis 1-2V routine HISTORY: 63 years-old Female In PACU - Post Surgical right hip arthroplasty COMPARISON: Pelvis radiograph 10/12/2024 TECHNIQUE: AP view the pelvis FINDINGS: Satisfactory alignment of the right hip arthroplasty. Expected postoperative soft tissue swelling with deep tissue air. Mild to moderate left hip osteoarthritis. IMPRESSION: Satisfactory alignment of the right hip arthroplasty. ACT 112: Negative or not required by law. The above report was generated using voice recognition software. It may contain grammatical, syntax or spelling errors. Electronically signed by: Yazan Ayoub M.D. 11/03/2024 1:47 PM
[2024-11-04 11:05] VITALS: BP 118/75; PULSE 61; O2SAT 99
--- NOTE | 2024-11-04 11:08 | Hospitalist Progress Note ---
Date of Service November 04, 2024 Assessment & Plan (1) Hypotension: Plan: Following surgery, patient BP soft w/ systolic BP ranging from 80s-90s EBL documented at 100cc 1 bag IVF ordered overnight BP improved 11/04 to normotensive range. At time of encounter: 131/73 CBC/BMP stable. (2) S/P total hip arthroplasty: Plan: Underwent surgery w/ Dr. Knight on 11/03 pain medication, bowel regimen, DVT prophylaxis per primary team. Plan Chronic conditions: Hypothyroidism: continue levothyroxine At this time, patient is medically stable for discharge from a hospitalist standpoint. Our service will sign off. Please call us back with questions or concerns. Admission and Anticipated Discharge Date Admission Date: November 03, 2024 Subjective Patient seen and examined this morning. Patient reports her hip is a 2/10 pain reddy. She feels less anxious since her blood pressure has improved with fluids. She was working with therapy at time of my encounter. She reports she is going to stay with her significant other upon discharge that will take good care of her. she denied CP or SOB. Physical Exam Constitutional: WD/WN, vitals as above Eyes: PERRL, conjunctivae normal, anicteric sclerae Respiratory: breathing unlabored Cardiovascular: well perfused Psychiatric: A+Ox3, euthymic affect Results & Data Results & Data Vital Signs (Past 12 Hours) Vital Signs Temp Pulse Resp BP BP Pulse Ox O2 Del Method 11/04/24 11:02 36.6 C 61 16 118/75 99 Room Air 11/04/24 08:18 36.6 C 62 16 108/68 95 Room Air 11/04/24 04:31 36.6 C 62 16 99/64 L 95 Room Air 11/03/24 23:54 36.4 C L 62 16 95/60 L 93 Room Air PG Care Time/CCT Total # of Minutes Spent Total Time Spent with Patient: Total time spent is greater than 50% in coordination of care (as documented) at patient's floor/unit and/or counseling patient: Coding Level of Care Code 25587 SUB INP/OBS CARE 2/35MIN Diagnoses Hypotension I95.9 S/P total hip arthroplasty Z96.649
--- NOTE | 2024-11-04 16:49 | Discharge Summary ---
Date of Service November 04, 2024 Admission HPI Per Admitting Provider History of Present Illness (including history relevant to procedure): 2 weeks this 63-year-old female presents the clinic today for her preoperative history and physical. Patient complains of 2-year history of significant right hip pain that seems to be worse when she is not moving. She states that she has used nonsteroidal agents with some mild relief of her pain. She states his starting to affect the mobility of her hip joint. Patient is electing to proceed with surgical invention Review Of Systems: A 12 point review of systems is performed and is unremarkable except for those things stated in the HPI and past medical history. Past Medical History: Problems: Arthritis of right hip Subclinical hypothyroidism IT band syndrome Seborrheic keratoses Allergic rhinitis Procedure History Procedure Procedure Date Comments Diagnostic mammogram 07/09/2022 - No evidence of architectural distortion within the right lateral breast on the additional mammogrpahic images. Findings are benign and consistent with normal fibrogladular tissue. No mammographic evidence of malignancy in the right breast. Mammogram 06/27/2022 - Possible right breast architectural distortion, for which additional imaging evaluation is recommended. The patient will be called to schedule an appointment. Mammogram 06/26/2021 - No mammographic evidence of malignancy. 1 year screening is recommended. Mammogram 06/25/2020 - No mammographic evidence of malignancy. 1 year screening is recommended. Mammogram 02/15/2019 - No mammographic evidence of malignancy. 1 year screening is recommended. Colonoscopy 02/09/2018 - next scope in 10 yrs - The entire examined colon is normal.No specimens collected. Mammogram 12/24/2017 - There is no mammographic evidence of malignancy. 1 year screening is recommended. Mammogram 01/07/2017 - The right medial breast asymmetry effaces on the additional views, without corresponding soogrpahic abnormality evident. The asymmetry is benign and compatible wit normal fibroglandular tissue. there is no mammographic evidence of malignancy. 1 year screening mamogram is recommended. [facility]-R[facility] CATEG[facility] 0: INCOMPLETE E VALUATION: NEED ADDITIONAL IMAGING EVALUATION1. Right medial breast asymmetry, for which additional imaging evaluation is recommended Date of last PAP test 12/10/2016 - Negative for intraepithelial lesion or malignancy. Mammogram 12/22/2014 - No evidence of malignancy.A one year mammogram is recommended. DEXA - Dual energy X-ray photon absorptiometry 12/17/2011 - T SCORESLIGHTLY HIGH, GENE REPEAT 2-14 Colonoscopy 2009 - polyp removed, but lost, so told another one in 5 yrs. PAP test date 1960 Allergies and Sensitivities: sulfa drugs Current Home Meds: (Last Updated 10/12 11:05) calcium-vitamin D (Citracal + D) PO Daily cetirizine (ZyrTEC 10 mg oral tablet) 10 mg PO Daily PRN: as needed for allergy symptoms diclofenac (diclofenac sodium 75 mg oral delayed release tablet) 75 mg PO bid PRN: as needed for pain levothyroxine (levothyroxine 75 mcg (0.075 mg) oral tablet) 1 tab PO Daily magnesium chloride multivitamin (One-A-Day 50+) 1 tab PO Daily Initial Wt: 10/12 73.7 kg 162 lb Admission Exam Per Admitting Provider Physical Exam: (relevant to the procedure, including heart and lung evaluation) General: Alert and oriented x 3 with proper grooming and hygiene Eyes: Pupils are equal and reactive to light with accommodation. Extraocular movements are intact Throat: Posterior oropharynx clear with absence of edema, erythema or exudate. Dentition is appropriate Cardiac: Regular rate and rhythm with grade 2/6 systolic murmur heard best over the right upper sternal border. No gallops appreciated Lungs: Clear to auscultation throughout with no wheezing, rales or rhonchi Abdomen: Nonobese, nondistended, nontender with NABS Extremities: Right hip: Flexion is limited to 90 degrees, internal rotation to 5 degrees and external rotation to 40 degrees. [facility] hospital logroll test were both positive. Impingement test was positive. Patient experienced tenderness to palpation in her groin area. She was neurovascularly intact. Neuro: Cranial nerves II through XII are intact no motor or sensory deficit Skin: Normal in appearance with no open skin areas or discharge Principal Diagnosis Right hip osteoarthritis Discharge Exam Right hip: Outer dressing was removed. Silverlon is clean dry and intact left in place. Patient is able to perform an active straight leg raise test and actively dorsi and plantarflex her foot. Her quad strength is 3+ out of 5. She tolerates light passive hip flexion near 80 degrees but does feel some slight tension with light passive internal and external hip rotation. Logroll test causes no pain. Patient is neurovascularly intact right lower extremity. Discharge Data Allergies Allergy/AdvReac Type Severity Reaction Status Date / Time Sulfa (Sulfonamide Allergy Mild Rash Verified 11/03/24 09:17 Antibiotics) Consultations 11/03/24 19:36 Consult Hospitalist Routine Procedures Performed Operation Date: 11/03/24 10:40 Actual Procedures p Right Total Hip Arthroplasty, Uncemented(Right) - Dakotah Sutton MD Hospital Course (1) S/P total hip arthroplasty: Patient had an uneventful overnight stay following total hip arthroplasty. She did have an episode of hypotension and was seen by one of the hospitalist doctors. Her pressure is normal upon examination this morning. She is very pleased with the results of the surgery and is okay to discharge home later this morning. Total hip precautions reviewed Weightbearing as tolerated with walker assistance DVT prophylaxis with aspirin and RENITA stockings Pain controlled p.o. medication Abduction pillow use x 6 weeks Ice with easy wrap Keep Silverlon dressing in place Plan is to discharge home today with in-home physical therapy for the first 2 weeks Follow-up with [facility] orthoped[facility] as previously scheduled Contact our clinic with questions at [phone] Total Time Total Time Spent Total Time Spent (In Minutes): 25 mins Discharge Plan Discharge Items Patient Disposition: Home - Home Health Services Reason For Visit: Right Hip Osteoarthritis Discharge Diagnosis: s/p Right total hip arthroplasty Activity: As commented below Lifting: None Bathing: Keep incision dry Bathing Comment: May shower today Sexual Activity: Wait until after follow-up appointment Exercise/Sports: Wait until after follow-up appointment Driving/Machine Use: No driving until cleared by lan specialist Weightbearing: Right weightbearing Weightbearing Comment: As tolerated with walker assistance Non-emergency contact: Surgeon Call non-emergency contact if: you have any medication questions, your pain is not controlled, your temperature is above 101.5, your wound has increased drainage and your wound pain has increased Follow-up/Referrals: Iveth Nixon MD [Primary Care Provider] - Diet: Regular Addtl Attending Provider Instructions: Post-operative Instructions Dear Patient and Family/Friends, Before you are discharged from the hospital, it is important to know what to expect when you get home after surgery. To that end, we have created this sheet of discharge instructions which covers many commonly asked questions. Make sure you go through this sheet in its entirety with your nurse before you are discharged. Please note that we will go over the specifics of your surgery and recovery when you return for your first post-operative visit. Sincerely, Dr. Sutton Medications 1. Oxycodone 5 mg: Take 1-2 tabs every 4-6 hours as needed for postoperative pain control. A prescription for this medication will be sent to your pharmacy. 2. Diclofenac sodium 75 mg: Resume your normal regimen of this medication for postoperative pain and inflammation relief. If you need a refill contact our clinic. 3. Zofran 4 mg: Take 1 tablet every 6-8 hours as needed for postoperative nausea and vomiting. This will be sent to your pharmacy 4. Aspirin 81 mg: Take 1 tab twice daily for the first 30 days postoperatively for blood clot prevention. Please purchase the medication. 5. Extra strength Tylenol 500 mg: Take 2 tabs every 6-8 hours as needed for additional pain relief. Please purchase this medication. Pain Expect to be in a fair amount of pain after surgery. Remember, our goal is not to eliminate your pain, but to make it tolerable. It is a good idea to stay ahead of your pain by taking the medications you were prescribed once you get home. Typically, the pain starts improving 3-7 days after surgery. You should start weaning off the narcotic pain medication (oxycodone, hydrocodone, hydromorphone, morphine) as soon as your pain improves. Please call our office if your pain is not adequately controlled. Ice Ice your operative site at least 5 times a day for 15-30 minutes at a time. Make sure you have a thin cloth between the ice or cooling unit and your skin to prevent schwab bite. This is especially important if you received a nerve block. Continue icing your operative site for the first 5-7 days after surgery, then as needed. Diet/Nausea/Vomiting Start by drinking clear liquids and eating crackers. If you can tolerate this, then you may resume your normal diet. If you feel nauseated or vomit, take Zo kori/ondansetron (if prescribed). Please call our office if you have intractable nausea or vomiting, or, if after hours, you may go to the Emergency Room for help. Constipation Constipation is a common side effect of narcotic pain medication. If you have not had a bowel movement within 2 days after surgery, we recommend purchasing an over the counter laxative such as Milk of Magnesia, Dulcolax, or Miralax from a local pharmacy, and taking it as instructed. Call our clinic if any questions. Slings and Braces If you were placed in a sling or brace, it must be worn at all times, including sleep. You may remove your sling or brace for physical therapy, home exercises, and showering. The length of time you will be in your brace and range of motion restrictions depends on what surgery you had; these details will be reviewed at your first post-operative appointment. Nerve block The anesthesia team sometimes places a nerve block to help with post-operative pain control. This results in significant numbness and inability to move the extremity. The nerve block usually wears off in 8-12 hours, but sometimes can last up to 24 hours. Please call our office if you are still unable to move your extremity after 24 hours, unless you received a pain pump to take home. Nerve blocks typically wear off quickly, so start taking pain medication as soon as you start feeling soreness near your surgical site. Weight bearing and Range of Motion. Do not bear any weight through your operative extremity immediately after surgery. If you had upper extremity surgery, do not lift anything with that arm. If you are in a knee brace, keep it locked in place until your follow-up. We will discuss your weight bearing, range of motion, and lifting restrictions in detail at your first post-operative appointment. Continuous Passive Motion (CPM) Machine If you were prescribed a CPM machine, it will start after your first post- operative appointment, at which time we will give you instructions on the range of motion settings and duration of treatment Physical therapy You will be given a prescription for physical therapy or occupational therapy at your first post-operative appointment. Typically, patients start therapy within 1 week of surgery Wound care and showering We will inspect your wound at your first post-operative visit, and may do a dressing change at that time. Most patients will be in a water-proof dressing that is removed 14 days after surgery. It is normal to see some dried blood on the dressing. Do not remove your dressing, paper strips or sutures yourself unless you are given permission. Showering is allowed the day after surgery. Do not scrub or remove any dressings. The wound should not be submerged underwater (i.e. in a bathtub or pool) until 4 weeks after surgery RENITA stockings If you were given white stockings, these are to be worn at all times except to shower (on both legs) for the first 2 weeks after surgery. Driving You may not drive while taking narcotic pain medication or while in a cast, splint, sling or brace. You, the patient, need to make the final determination about when you are safe to drive, however, the earliest you may consider driving after surgery is below: Hand/Wrist/Elbow Surgery: 3 days Shoulder Surgery: 2 weeks Hip,/Knee/Ankle Surgery: 4 weeks Fracture repair: 6 weeks Return to Work Your return to work depends on what surgery was done and what type of work you do. Please bring any paperwork your employer needs completed to your first post-operative visit. Also, bring a description of your job duties, as this helps us to understand what risks you may face at work. Travel Avoid long distance travel (greater than 1 hour) in airplanes and cars for the first 6 weeks after surgery. If you must travel, you need to have a Doppler ultrasound done before you travel to rule out a blood clot in your legs. Follow-up You should have a follow-up appointment already scheduled 1-2 days after surgery. If not, please contact our office to make this appointment before you leave the hospital. When to call the office It is normal to have swelling and bruising in the limb that was operated on. This will improve with time. It is also normal to have fevers for the first 2 days after surgery. Reasons you should call your doctor include: Uncontrolled pain; Nausea, vomiting, or constipation that does not improve with medication; Fevers over 101.5, chills, sweats; Drainage or bleeding from the wound; Foul odor; Spreading areas of redness; Any other concerns. Contact Information Please call Dr. Sutton's office at [phone] with any concerns. Pending Studies at Discharge: No Stand-Alone Forms: [facility] Medications and DC Order Prescriptions: New aspirin 81 mg Tablet,Delayed Release (Dr/Ec) 81 mg PO BID 30 Days Qty: 60 0RF acetaminophen [Tylenol Extra Strength] 500 mg Tablet 1,000 mg PO Q8 30 Days Qty: 180 0RF oxycodone 5 mg Tablet 5 - 10 mg PO Q4H MDD Ongoing treatment. PRN (Reason: Postoperative pain control) Qty: 28 0RF ondansetron 4 mg tablet,disintegrating 4 mg PO Q8H Qty: 14 0RF Continued cetirizine [Zyrtec] 10 mg Tablet 10 mg PO QPM PRN (Reason: allergies) Calcium 600 + D(3) 600 mg calcium- 200 unit Capsule 1 cap PO QPM Slow-Mag 71.5 mg Tablet,Delayed Release (Dr/Ec) 143 mg PO QPM levothyroxine 75 mcg Tablet 75 mcg PO QAM diclofenac sodium 75 mg Tablet,Delayed Release (Dr/Ec) 75 mg PO BID Women's 50 Plus Multivitamin 400 mcg-500 mg calcium-20 mcg Tablet 1 tab PO QPM Discharge Orders: Discharge Order (Routine); Ordered 11/04/24 Ordered By: Trell Knight Admission Data Admit Date/Time: 11/03/24 12:58 Attending Provider: Dakotah Sutton Admit Provider: Dakotah Sutton Primary Care Provider: Iveth Nixon Other Providers: [facility]; Maci Silveira Other Interventions: Discharge Summary Assessment (RN) Last Done: 11/04/24 11:09
== END 2024-11-04 12:30 | disposition home health service (06) | DRG 470 ==
LOC: ASU 08:39 → INTOOBSV 12:58 → PACUINP 12:58 → 3E 16:13